=== PATIENT | male | born 1960 | race Caucasian/White ===

== ENCOUNTER 2016-07-15 10:43 | Emergency (ER) | payer BC ==
[~2016-07-15 10:43] MED LIST: ARTHRITIS PILL; BP MEDICATION; CHOLESTEROL PILL; FLEXERIL; PAIN PILL; STOMACH PILL; [UNRECOGNIZED DRUG - REMARK]
[2016-07-15 12:26] LABS: BASOPHILS 0.9 %; BASOPHILS ABSOLUTE 0.03 10/3/uL (0.0-0.16); EOSINOPHILS 2.1 %; EOSINOPHILS ABSOLUTE 0.07 10/3/uL (0.0-0.53); HEMATOCRIT 29.7 % (40.0-51.0); HEMOGLOBIN 9.6 g/dL (13.6-17.8); IMMATURE GRANULOCYTES 0.3 %; IMMATURE GRANULOCYTES ABSOLUTE 0.01 10/3/uL (0.0-0.11); LYMPHOCYTES 46.2 %; LYMPHOCYTES ABSOLUTE 1.53 10/3/uL (0.67-4.30); MEAN PLATELET VOLUME 8.3 fL (9.2-13.0); MONOCYTES 7.9 %; MONOCYTES ABSOLUTE 0.26 10/3/uL (0.21-1.20); NEUTROPHILS 42.6 %; NEUTROPHILS ABSOLUTE 1.41 10/3/uL (2.02-8.40); RBC DISTRIBUTION WIDTH 17.8 % (12.0-16.0)
[2016-07-15 12:27] LABS: ER CBC TAT 0 Hrs 07 Mins; MANUAL DIFF NO %; MEAN CORPUS HGB CONC 32.3 g/dL (32.0-36.0); MEAN CORPUSCULAR HEMOGLOB 24.6 pg (26.0-34.0); MEAN CORPUSCULAR VOLUME 76.2 fL (80-100); PLATELET COUNT 309 10/3/uL (150-400); WHITE BLOOD CELLS 3.3 10/3/uL (4.5-10.5)
[2016-07-15 12:33] LABS: PARTIAL THROMBO TIME 27.7 SEC (22.5-37.2); PROTIME (NOT ORD) 12.9 SEC (12.0-14.5)
[2016-07-15 12:42] LABS: CALCIUM, SERUM 9.3 MG/DL (8.5-10.4); CHLORIDE, SERUM 89 MMOL/L (96-112); CO2 (CARBON DIOXIDE) 22 MMOL/L (24-34); CREATININE 0.61 MG/DL (0.70-1.30); GFR AFRICAN AMERICAN 131 ML/MIN (>=60); GFR NON AFRICAN AMERICAN 113 ML/MIN (>=60); GLUCOSE, SERUM 89 MG/DL (60-99); POTASSIUM, SERUM 4.5 MMOL/L (3.5-5.3); SODIUM, SERUM 125 MMOL/L (135-148)
[2016-07-15 12:43] LABS: CHEST PAIN PROFILE TAT 0 Hrs 23 Mins; TROPONIN I <0.02 NG/ML (<0.05)
[2016-07-15 12:45] LABS: BUN (BLOOD UREA NITROGEN) 4 MG/DL (6-23)
[2016-07-15 13:15] LABS: D-DIMER QUANTITATIVE 1.15 ug/mLFEU (< 0.50)
[2016-07-15 13:34] LABS: ALBUMIN 4.6 G/DL (3.5-5.0); ALKALINE PHOSPHATASE 68 U/L (45-117); DIRECT BILIRUBIN < 0.1 MG/DL (0.0-0.4); INDIRECT BILIRUBIN(NOT ORDER) 0.1 MG/DL (0.1-0.9); SGOT(AST) 53 U/L (5-40); SGPT(ALT) 36 U/L (5-65); TOTAL BILIRUBIN 0.2 MG/DL (0-1.2); TOTAL PROTEIN 8.5 G/DL (6.0-8.5)
[2017-01-19] MEDS ORDERED: ADALAT CC90 MG PO (13:32)
[2017-01-19] MEDS ORDERED: SUCR PO (13:32)
[2017-01-19] MEDS ORDERED: LISINOPRIL40 MG PO (13:32)
[2017-01-19] MEDS ORDERED: PROTONIX PO (13:33)
[2017-01-19] MEDS ORDERED: FERROUS SULF325 M1 PO (13:33)
[2017-01-19] MEDS ORDERED: FLEX PO (13:33)
[2017-01-19] MEDS ORDERED: AMB10 PO (13:33)
[2017-01-19] MEDS ORDERED: OXYIR5 MG PO (13:34)
== END 2016-07-15 18:59 | disposition home or self-care (01) ==
LOC: ER 10:43
PROVIDERS: Emergency Medicine
DX: E87.1 Hypo-osmolality and hyponatremia (principal); E87.8 Other disorders of electrolyte and fluid balance, not elsewhere classified; R06.00 Dyspnea, unspecified; D64.9 Anemia, unspecified; Z87.01 Personal history of pneumonia (recurrent); F17.200 Nicotine dependence, unspecified, uncomplicated
CPT/HCPCS: 71020; 71275; 80048; 80076; 83690; 83735; 83880; 84484; 85025; 85379; 85610; 85730; 93005; 96374; 96375; 99285; J2930; Q9967